=== PATIENT | male | born 1970 | race Caucasian/White ===

== ENCOUNTER 2017-07-21 20:21 | Observation (INO) | payer OTHER ==
[~2017-07-21] VITALS: Ht 167.6 cm; Wt 71.1 kg
[2017-07-21 20:26] VITALS: BP 159/89; PULSE 105; RESP 18; TEMP 98.5; O2SAT 91
[2017-07-21] MEDS ORDERED: chlordiazePOXIDE 25 MG CAP PO ONE (20:45)
[2017-07-21] MEDS ORDERED: SODIUM CHLORIDE 0.9% FLUSH 10 ML FLUSH IV FLUSH PRN ×2 (20:45→23:00)
--- NOTE | 2017-07-21 20:55 | PD ---
HPI Chief Complaint: Seizure Time Seen by Provider: 20:40 Travel History International Travel<30 days: No Contact w/Intl Traveler<30days: No Traveled to known affect area: No History of Present Illness HPI The patient is a 46-year-old white male alcoholic who normally drinks about 18 beers daily who had some beer this morning but none the rest of the day. He apparently had a seizure somewhere around 7:30 to 8 PM tonight. All he remembers is that he woke up in the ambulance. He denies any head trauma. He denies any tongue biting. He states he has never had a seizure before except when he was a 16-year-old child. He states he had a seizure then because he didn't have enough deep. His friends apparently stated he was starting to have tremors. His friends tried to get him to sip some beer but he started seizing at that point. He states that under no circumstance will he be admitted to the hospital. The patient is a [facility] patient of Dr. Dominguez. He denies any hallucinosis. PFSH Past Medical History Blood Disorders: No Bipolar Disorder: Yes Anxiety: Yes Cancer: No Cardiovascular Problems: No Chemotherapy: No Diminished Hearing: No Endocrine: No Genitourinary: No Immune Disorder: No Inguinal Hernia: Yes Implanted Vascular Access Dvce: No Musculoskeletal: No Neurologic: No Psychiatric: Yes Reproductive: No Respiratory: No Radiation Therapy: No Past Surgical History Ear Surgery: Yes ("TUBES IN MY EARS WHEN I WAS LITTLE CHILD") Oral Surgery: Yes (LEFT JAW SURGERY ) Pacemaker: No Other Surgery: Yes Social History Alcohol Use: Yes (24 PACK DAILY) Tobacco Use: No Substance Use: Yes (ALCOHOL ) Allergies-Medications (Allergen,Severity, Reaction): Coded Allergies: No Known Allergies (Verified Allergy, Unknown, 07/21/17) Reported Meds & Prescriptions Reported Meds & Active Scripts Active No Active Prescriptions or Reported Medications Review of Systems Except as stated in HPI: all other systems reviewed are Neg Physical Exam Narrative GENERAL: The patient is alert, oriented 3 in no apparent distress. His vital signs show blood pressure 159/89 with heart rate of 105 and oximetry 91% but otherwise normal. SKIN: Focused skin assessment warm/dry. HEAD: Atraumatic. Normocephalic. EYES: Pupils equal and round. No scleral icterus. No injection or drainage. ENT: No nasal bleeding or discharge. Mucous membranes pink and moist. There is a questionable bite addison on the left edge of the tongue. Mid point but the patient states he does not feel any sore there. NECK: Trachea midline. No JVD. No C-spine tenderness or deformity is present. CARDIOVASCULAR: Regular rate and rhythm. No murmur appreciated. RESPIRATORY: No accessory muscle use. Clear to auscultation. Breath sounds equal bilaterally. GASTROINTESTINAL: Abdomen soft, non-tender, nondistended. Hepatic and splenic margins not palpable. MUSCULOSKELETAL: No obvious deformities. No clubbing. No cyanosis. No edema. NEUROLOGICAL: Awake and alert. No obvious cranial nerve deficits. Motor grossly within normal limits. Normal speech. PSYCHIATRIC: Appropriate mood and affect; insight and judgment normal. Data Data Last Documented VS Vital Signs Date Time Temp Pulse Resp B/P (MAP) Pulse Ox O2 Delivery O2 Flow Rate FiO2 07/21/17 22:37 98.4 88 18 152/86 (108) 97 Room Air 07/21/17 20:31 2.00 Orders Orders Electrocardiogram (07/21/17 20:41) Complete Blood Count With Diff (07/21/17 20:41) Comprehensive Metabolic Panel (07/21/17 20:41) Troponin I (07/21/17 20:41) Urinalysis - C+S If Indicated (07/21/17 20:41) Ct Brain W/O Iv Contrast(Rout) (07/21/17 20:41) Blood Glucose (07/21/17 20:41) Ecg Monitoring (07/21/17 20:41) Iv Access Insert/Monitor (07/21/17 20:41) Oximetry (07/21/17 20:41) Sodium Chloride 0.9% Flush (Ns Flush) (07/21/17 20:45) Drug Screen, Random Urine (07/21/17 20:41) Alcohol (Ethanol) (07/21/17 20:41) Chlordiazepoxide (Librium) (07/21/17 20:45) Chlordiazepoxide (Librium) (07/21/17 20:45) Sodium Chlor 0.9% 1000 Ml Inj (Ns 1000 M (07/21/17 21:00) Vital Signs (Adult) KAREN.Q4H (07/21/17 22:52) ^ Seizure Precautions (07/21/17 22:52) Diet Regular Basic (07/22/17 Breakfast) Place In Observation (07/21/17 ) Vital Signs (Adult) Q4H (07/21/17 22:52) Alcohol Withdrawal Asmt-Ciwa Q4HX18 (07/21/17 22:52) ^ Seizure Precautions (07/21/17 22:52) Sodium Chloride 0.9% Flush (Ns Flush) (07/21/17 23:00) Sodium Chloride 0.9% Flush (Ns Flush) (07/22/17 09:00) Folic Acid (Folate) (07/22/17 09:00) Multivitamins-Minerals Therap (Theragran (07/22/17 09:00) Thiamine Inj (Thiamine Inj) (07/21/17 23:00) Ondansetron Inj (Zofran Inj) (07/21/17 23:00) Consult Cm-Etoh Abuse Dc Plan (07/21/17 ) Flumazenil Inj (Romazicon Inj) (07/21/17 23:00) Lorazepam (Ativan) (07/21/17 23:00) Lorazepam Inj (Ativan Inj) (07/21/17 23:00) Lorazepam (Ativan) (07/21/17 23:00) Lorazepam Inj (Ativan Inj) (07/21/17 23:00) Lorazepam Inj (Ativan Inj) (07/21/17 23:00) Lorazepam Inj (Ativan Inj) (07/21/17 23:00) Scd Bilateral/Knee High KAREN.BID (07/21/17 22:52) Labs Laboratory Tests Test 07/21/17 21:00 07/21/17 21:08 White Blood Count 3.6 TH/MM3 Red Blood Count 4.47 MIL/MM3 Hemoglobin 12.9 GM/DL Hematocrit 38.9 % Mean Corpuscular Volume 86.9 FL Mean Corpuscular Hemoglobin 29.0 PG Mean Corpuscular Hemoglobin Concent 33.3 % Red Cell Distribution Width 13.6 % Platelet Count 139 TH/MM3 Mean Platelet Volume 7.5 FL Neutrophils (%) (Auto) 74.7 % Lymphocytes (%) (Auto) 9.9 % Monocytes (%) (Auto) 14.1 % Eosinophils (%) (Auto) 0.4 % Basophils (%) (Auto) 0.9 % Neutrophils # (Auto) 2.7 TH/MM3 Lymphocytes # (Auto) 0.4 TH/MM3 Monocytes # (Auto) 0.5 TH/MM3 Eosinophils # (Auto) 0.0 TH/MM3 Basophils # (Auto) 0.0 TH/MM3 CBC Comment DIFF FINAL Differential Comment Blood Urea Nitrogen 10 MG/DL Creatinine 0.90 MG/DL Random Glucose 83 MG/DL Total Protein 8.0 GM/DL Albumin 4.2 GM/DL Calcium Level 8.7 MG/DL Alkaline Phosphatase 59 U/L Aspartate Amino Transf (AST/SGOT) 131 U/L Alanine Aminotransferase (ALT/SGPT) 122 U/L Total Bilirubin 0.7 MG/DL Sodium Level 132 MEQ/L Potassium Level 3.8 MEQ/L Chloride Level 97 MEQ/L Carbon Dioxide Level 20.3 MEQ/L Anion Gap 15 MEQ/L Estimat Glomerular Filtration Rate 92 ML/MIN Troponin I LESS THAN 0.02 NG/ML Ethyl Alcohol Level 9 MG/DL Urine Collection Type Urine Color YELLOW Urine Turbidity CLEAR Urine pH 5.5 Urine Specific [place] 1.021 Urine Protein 30 mg/dL Urine Glucose (UA) NEG mg/dL Urine Ketones TRACE mg/dL Urine Occult Blood MOD Urine Nitrite NEG Urine Bilirubin NEG Urine Leukocyte Esterase NEG Urine WBC 0-2 /hpf Urine Mucus FEW /lpf Microscopic Urinalysis Comment CULT NOT INDICATED Urine Opiates Screen NEG Urine Barbiturates Screen NEG Urine Amphetamines Screen NEG Urine Benzodiazepines Screen NEG Urine Cocaine Screen NEG Urine Cannabinoids Screen NEG MDM Medical Decision Making Medical Screen Exam Complete: Yes Emergency Medical Condition: Yes Medical Record Reviewed: Yes Interpretation(s) The CT brain shows no acute intracranial findings. The CBC shows a white count of 3600 with a hemoglobin of 12.9 and hematocrit of 38.9. The toxicology screen is negative for all substances tested in the urine and alcohol level is 9. The complete metabolic profile shows a sodium of 132, AST of 131, ALT 122 but is otherwise unremarkable. The troponin I is normal. The EKG shows sinus rhythm with a rate of [address] elevation or depression. Differential Diagnosis Alcohol withdrawal seizure, intracranial bleed-unlikely, electrolyte disorder, seizure disorder with seizures Narrative Course The patient appears to have alcohol withdrawal seizure. He will be [address] José whitten, I discussed the patient with him. Diagnosis Primary Impression: Alcohol withdrawal seizure Additional Impression: Alcohol abuse Admitting Information Admitting Physician Requests: Observation Scripts No Active Prescriptions or Reported Meds Donal Waterman MD Jul 21, 2017 20:55
[2017-07-21] MEDS: SODIUM CHLOR 0.9% 1000 ML INJ 1,000 ML IV SCH (21:07)
[2017-07-21 21:12] LABS: AUTOMATED NEUTROPHIL # 2.7 TH/MM3 (1.8-7.7); BASOPHIL % 0.9 % (0.0-2.0); EOSINOPHIL % 0.4 % (0.0-4.0); HEMATOCRIT 38.9 % (39.0-51.0); HEMOGLOBIN 12.9 GM/DL (13.0-17.0); LYMPH % 9.9 % (9.0-44.0); LYMPHOCYTE # 0.4 TH/MM3 (1.0-4.8); MEAN CELL VOLUME 86.9 FL (80.0-100.0); MEAN CORPUSCULAR HGB CONC 33.3 % (32.0-36.0); MEAN PLATELET VOLUME 7.5 FL (7.0-11.0); MONO % 14.1 % (0.0-8.0); MONOCYTE # 0.5 TH/MM3 (0-0.9); NEUT % 74.7 % (16.0-70.0); PLATELET COUNT 139 TH/MM3 (150-450); RED BLOOD COUNT 4.47 MIL/MM3 (4.50-5.90); RED CELL DISTRIBUTION WIDTH 13.6 % (11.6-17.2); WHITE BLOOD COUNT 3.6 TH/MM3 (4.0-11.0)
[2017-07-21 21:15] VITALS: O2SAT 97
[2017-07-21 21:20] LABS: CHLORIDE 97 MEQ/L (98-107); SODIUM (NA) 132 MEQ/L (136-145)
[2017-07-21 21:23] LABS: ALBUMIN 4.2 GM/DL (3.4-5.0); BICARBONATE 20.3 MEQ/L (21.0-32.0); BLOOD UREA NITROGEN 10 MG/DL (7-18); CALCIUM 8.7 MG/DL (8.5-10.1); GLUCOSE,RANDOM 83 MG/DL (74-106)
[2017-07-21 21:26] LABS: ALT (GPT) 122 U/L (12-78); AST (GOT) 131 U/L (15-37); GLOMERULAR FILTRATION RATE 92 ML/MIN (>89)
[2017-07-21 21:28] LABS: TOTAL BILIRUBIN ADULT 0.7 MG/DL (0.2-1.0)
[2017-07-21 21:29] LABS: ALKALINE PHOSPHATASE 59 U/L (45-117)
[2017-07-21 21:30] VITALS: BP 152/88; PULSE 98; RESP 18; O2SAT 98
[2017-07-21 21:31] LABS: TROPONIN I LESS THAN 0.02 NG/ML (0.02-0.05)
[2017-07-21 21:32] LABS: BILIRUBIN, URINE NEG (NEG); BLOOD, URINE MOD (NEG); GLUCOSE,URINE NEG (NEG); KETONE, URINE TRACE mg/dL (NEG); NITRITE,URINE NEG (NEG); PH, URINE 5.5 (5.0-8.5); URINE LEUKOCYTE ESTERASE NEG (NEG)
[2017-07-21 21:35] LABS: MUCUS URINE FEW /lpf (OCC); URINE COLOR YELLOW (YELLW/STRAW)
[2017-07-21 21:36] LABS: WBC, URINE 0-2 /hpf (0-5)
--- NOTE | 2017-07-21 21:49 | RADRPT ---
EXAM DATE/TIME: 07/21/2017 21:15 [place] COMPARISON: No previous studies available for comparison. INDICATIONS : New seizure activity today RADIATION DOSE: 59.00 CTDIvol (mGy) MEDICAL HISTORY : Seizures. SURGICAL HISTORY : Jaw ENCOUNTER: Initial ACUITY: 1 day PAIN SCALE: 0/10 LOCATION: cranial TECHNIQUE: Multiple contiguous axial images were obtained of the head. Using automated exposure control and adj ustment of the mA and/or kV according to patient size, radiation dose was kept as low as reasonably a chievable to obtain optimal diagnostic quality images. DICOM format image data is available electro nically for review and comparison. FINDINGS: CEREBRUM: The ventricles are normal for age. No evidence of midline shift, mass lesion, hemorrhage or acute in farction. No extra-axial fluid collections are seen. POSTERIOR FOSSA: The cerebellum and brainstem are intact. The 4th ventricle is midline. The cerebellopontine angle i s unremarkable. EXTRACRANIAL: Polyps or retention cysts in the left maxillary sinus. SKULL: The calvaria is intact. No evidence of skull fracture. CONCLUSION: No acute intracranial findings. Kadeem Grace MD on July 21, 2017 at 21:45 Board Certified Radiologist. This report was verified electronically.
[2017-07-21 22:37] VITALS: BP 152/86; PULSE 88; RESP 18; TEMP 98.4; O2SAT 97
[2017-07-21] MEDS ORDERED: LORazepam 2 MG TAB PO PRN (23:00)
[2017-07-21] MEDS ORDERED: LORazepam 2 MG/ML VIAL IV PUSH PRN ×4 (23:00)
[2017-07-21] MEDS ORDERED: ONDANSETRON HCL 4 MG/2 ML VIAL IV PUSH PRN (23:00)
[2017-07-21] MEDS ORDERED: LORazepam 1 MG TAB PO PRN (23:00)
[2017-07-21] MEDS ORDERED: FLUMAZENIL 0.5 MG/5 ML VIAL IV PUSH PRN (23:00)
[2017-07-21] MEDS ORDERED: THIAMINE INJ 100 MG in SODIUM CHLORIDE 0.9% INJ 100 ML IV ONE (23:15)
[2017-07-21] MEDS: THIAMINE INJ 100 MG in SODIUM CHLORIDE 0.9% INJ 100 ML IV SCH (23:39)
[2017-07-22] VITALS: BP 161/94; PULSE 82; RESP 20; TEMP 98.2; O2SAT 97
[2017-07-22 00:37] VITALS: BP 150/75; TEMP 98.4
[2017-07-22] MEDS: SODIUM CHLOR 0.45% 1000 ML INJ 1,000 ML IV SCH ×2 (00:45→12:30)
[2017-07-22 08:00] VITALS: BP_SYST 150; BP_SYST 158; BP_DIAS 100; BP_DIAS 111; PULSE 83; RESP 16; TEMP 97; O2SAT 97
[2017-07-22] MEDS: chlordiazePOXIDE 25 MG CAP PO SCH ×3 (08:17→17:44)
[2017-07-22] MEDS: FOLIC ACID 1 MG TAB PO SCH (08:18)
[2017-07-22] MEDS: SODIUM CHLORIDE 0.9% FLUSH 10 ML FLUSH IV FLUSH SCH ×2 (08:18→20:07)
[2017-07-22] MEDS: MULTIVITAMINS/MINERALS THERAPEUTIC TAB PO SCH (08:18)
--- NOTE | 2017-07-22 08:31 | MH ---
cc: RAMONE THAO M.D. DATE OF ADMISSION: 07/21/2017 ADMITTING DIAGNOSIS: 1. Alcohol withdrawal seizure. 2. Chronic alcohol abuse / alcoholism. 3. Elevated liver function tests secondary to alcohol. HISTORY OF PRESENT ILLNESS: This 46-year-old white male who drinks up to 24 beers a day who apparently after work yesterday he was with some friends. He had a seizure around 7:30 to 8:00 p.m. The patient had no recall of this. All he remembers is he woke up in an ambulance. Apparently his friends tried to get him to sip some beer but he started seizing at that point. He mentions that he did have an alcohol withdrawal seizure about three months ago and was admitted to a hospital up in [place]. He was discharged on Ativan for five days. He has had no other seizures that he can recall. He did go to [facility] a few years ago and detoxed with Librium and states that he would really like to get back on Librium if he is going to detox himself but he states he cannot go to a detox center because he cannot miss work. He apparently works for a [employer] and lives on the site of where his business is and he does not drive a motor vehicle. He has no current complaints other than he states he is still pretty shaky today. His last drink of alcohol was yesterday afternoon. He does not feel like he is ready to go home today. PAST MEDICAL HISTORY: He denies any heart disease, hypertension, diabetes. He has never been told he had any liver disease. No kidney disease. No peptic ulcer disease or stroke. No lung problems. PAST SURGICAL HISTORY: 1. He has had tympanostomy tubes when he was young. 2. He had surgery for a fracture of his mandible. ALLERGIES: NONE. MEDICATIONS: He was not on any medications at home. FAMILY HISTORY: His father is living and he is 74 and has heart disease. His mother at 48 of alcoholic cirrhosis. He had a brother in his 40s from cancer. A sister at 54 of an overdose on Fentanyl. SOCIAL HISTORY: He is . He quit smoking seven years ago. He smoked a pack a day for 18 years. He works for [employer]. He drinks, he states, up to a case of beer a day and has for quite some time. REVIEW OF SYSTEMS: GENERAL: He has had no fever, chills, sweats. HEAD, EYES, EARS, NOSE, THROAT: Without complaints. CARDIOVASCULAR: No chest pain, orthopnea, or paroxysmal nocturnal dyspnea. PULMONARY: No cough, hemoptysis, wheezing. GASTROINTESTINAL: No abdominal pain, nausea or vomiting, diarrhea. GENITOURINARY: Without complaints. MUSCULOSKELETAL: Without complaints. PSYCHIATRIC: He is just a little shaky. He states he may have been told at one time he was bipolar but he has never been on any medication for that. NEUROLOGIC: No confusion. No weakness or sensory loss. PHYSICAL EXAMINATION: VITAL SIGNS: His blood pressure is 150/75, 02 saturation 98%, respirations 18, pulse 88, temperature 98.4. GENERAL: A pleasant white male in no significant distress. He just minimally tremulous. He is alert and oriented. HEAD, EYES, EARS, NOSE, THROAT: Pupils are equal. The sclerae are nonicteric. Nose without lesions. Mouth without inflammation or lesions. NECK: Without jugular venous distention. No bruits. HEART: Regular rate and rhythm. No murmurs. LUNGS: Clear. ABDOMEN: Abdomen soft and nontender. No masses. EXTREMITIES: No edema. Pulses 2+. SKIN: Negative. NEUROLOGIC: Oriented x3. Motor and sensory intact. Cranial nerves intact. LABORATORY: His white count last night was 3.6, hemoglobin 12.9, platelet count 139,000 probably secondary to his liver disease. Sodium 132, potassium 3.8, chloride 97, carbon dioxide 20.3, BUN and creatinine normal, AST was high at 131, ALT 122. Troponin less than 0.02. Protein 8.0. Albumin 4.2. Urine was negative for opiates, barbiturates, benzodiazepine, cocaine, cannabinoids. His alcohol level last night was 9. Urine was negative. IMAGING STUDIES: CT brain scan showed no acute findings. ASSESSMENT: 1. Alcohol withdrawal seizure. 2. Chronic alcohol abuse / alcoholism. 3. Elevated liver function tests secondary to alcohol. 4. Minimal thrombocytopenia, likely secondary to alcohol. PLAN: 1. We will go ahead and just put him on some scheduled Librium 25 milligrams three times a day. 2. He has Ativan ordered should he get worsening withdrawal symptoms or seizure. 3. He has thiamine ordered as well on a daily basis. 4. We will monitor him here for at least one more day and then possibly send him home on Librium to follow up with Dr. Suh, his primary care physician. MD BRITTNEY Chance/ROLO /8:01 AM /8:10 AM
[2017-07-22 09:17] LABS: BICARBONATE 25.1 MEQ/L (21.0-32.0); CALCIUM 8.1 MG/DL (8.5-10.1)
[2017-07-22 09:21] LABS: CREATININE 0.77 MG/DL (0.60-1.30)
[2017-07-22 12:00] VITALS: BP_SYST 140; BP_SYST 158; BP_DIAS 107; BP_DIAS 92; PULSE 75; RESP 18; TEMP 97.3; O2SAT 95
--- NOTE | 2017-07-22 15:06 | EKG ---
Date Performed: 07/21/2017 Time Performed: 20:49:01 PTAGE: 46 years EKG: Sinus rhythm NORMAL ECG PREVIOUS TRACING : 10/13/2012 10.16 Since previous tracing, no significant change noted DOCTOR: Andrew Randolph Interpretating Date/Time 07/22/2017 15:05:35
[2017-07-22 16:00] VITALS: BP 145/89; PULSE 80; RESP 18; TEMP 97.7; O2SAT 96
[2017-07-22 20:00] VITALS: BP 149/98; PULSE 83; RESP 18; TEMP 97.8; O2SAT 98
[2017-07-22] MEDS: THIAMINE INJ 100 MG in SODIUM CHLORIDE 0.9% INJ 100 ML IV SCH (22:36)
[2017-07-23] VITALS: BP_SYST 152; BP_SYST 155; BP_DIAS 102; BP_DIAS 117; PULSE 80; RESP 18; TEMP 97.7; O2SAT 95
[2017-07-23] MEDS: SODIUM CHLOR 0.45% 1000 ML INJ 1,000 ML IV SCH (00:34)
[2017-07-23 04:00] VITALS: BP 128/92; PULSE 69; RESP 20; TEMP 97.3; O2SAT 97
--- NOTE | 2017-07-23 07:03 | HHI.PR ---
Subjective Remarks No shortness of breath. No pain. No seizures. He is less shaky. He feels like he can go home. Objective Vitals Vital Signs Date Time Temp Pulse Resp B/P (MAP) Pulse Ox O2 Delivery O2 Flow Rate FiO2 07/23/17 04:00 97.3 69 20 128/92 (104) 97 07/23/17 00:00 97.7 80 18 155/117 (130) 95 152/102 (119) 07/22/17 20:00 97.8 83 18 149/98 (115) 98 07/22/17 16:00 97.7 80 18 145/89 (107) 96 07/22/17 12:00 97.3 75 18 158/107 (124) 95 140/92 (108) 07/22/17 08:00 97.0 83 16 150/111 (124) 97 158/100 (119) Result Diagram: 07/21/17 2100 07/22/17 0800 Other Results Laboratory Tests Test 07/21/17 21:00 07/21/17 21:08 07/22/17 08:00 White Blood Count 3.6 TH/MM3 Red Blood Count 4.47 MIL/MM3 Hemoglobin 12.9 GM/DL Hematocrit 38.9 % Mean Corpuscular Volume 86.9 FL Mean Corpuscular Hemoglobin 29.0 PG Mean Corpuscular Hemoglobin Concent 33.3 % Red Cell Distribution Width 13.6 % Platelet Count 139 TH/MM3 Mean Platelet Volume 7.5 FL Neutrophils (%) (Auto) 74.7 % Lymphocytes (%) (Auto) 9.9 % Monocytes (%) (Auto) 14.1 % Eosinophils (%) (Auto) 0.4 % Basophils (%) (Auto) 0.9 % Neutrophils # (Auto) 2.7 TH/MM3 Lymphocytes # (Auto) 0.4 TH/MM3 Monocytes # (Auto) 0.5 TH/MM3 Eosinophils # (Auto) 0.0 TH/MM3 Basophils # (Auto) 0.0 TH/MM3 CBC Comment DIFF FINAL Differential Comment Blood Urea Nitrogen 10 MG/DL 8 MG/DL Creatinine 0.90 MG/DL 0.77 MG/DL Random Glucose 83 MG/DL 73 MG/DL Total Protein 8.0 GM/DL Albumin 4.2 GM/DL Calcium Level 8.7 MG/DL 8.1 MG/DL Magnesium Level 2.0 MG/DL Alkaline Phosphatase 59 U/L Aspartate Amino Transf (AST/SGOT) 131 U/L Alanine Aminotransferase (ALT/SGPT) 122 U/L Total Bilirubin 0.7 MG/DL Sodium Level 132 MEQ/L 135 MEQ/L Potassium Level 3.8 MEQ/L 3.5 MEQ/L Chloride Level 97 MEQ/L 101 MEQ/L Carbon Dioxide Level 20.3 MEQ/L 25.1 MEQ/L Anion Gap 15 MEQ/L 9 MEQ/L Estimat Glomerular Filtration Rate 92 ML/MIN 110 ML/MIN Troponin I LESS THAN 0.02 NG/ML Ethyl Alcohol Level 9 MG/DL Urine Collection Type Urine Color YELLOW Urine Turbidity CLEAR Urine pH 5.5 Urine Specific [place] 1.021 Urine Protein 30 mg/dL Urine Glucose (UA) NEG mg/dL Urine Ketones TRACE mg/dL Urine Occult Blood MOD Urine Nitrite NEG Urine Bilirubin NEG Urine Leukocyte Esterase NEG Urine WBC 0-2 /hpf Urine Mucus FEW /lpf Microscopic Urinalysis Comment CULT NOT INDICATED Urine Opiates Screen NEG Urine Barbiturates Screen NEG Urine Amphetamines Screen NEG Urine Benzodiazepines Screen NEG Urine Cocaine Screen NEG Urine Cannabinoids Screen NEG Imaging Last Impressions Head CT 07/21/172040 Signed Impressions: Service Date/Time: Friday, July 21, 2017 21:15 - CONCLUSION: No acute intracranial findings. Kadeem Grace MD Objective Remarks Exam: Pleasant white male in no distress. HEENT: Pupils equal, mouth negative, no scleral icterus Neck: No JVD Heart: RRR with no murmurs Lungs: Clear Abdomen: Soft, nontender Ext: No edema Neuro: Alert, oriented, no motor or sensory deficits A/P Assessment and Plan Assessment: --Alcohol withdrawal seizure --Alcoholism/chronic alcohol abuse --Abnormal liver function tests secondary to alcohol use --Minimal thrombocytopenia Plan: Discharge today. I will send him home on Librium 25mg three times a day and have him followup with Dr Suh in 3-5 days. I ordered Thiamine 100mg po daily also. José Boo MD Jul 23, 2017 07:03
[2017-07-23] MEDS ORDERED: VITA100T54 PO (07:15)
[2017-07-23] MEDS ORDERED: THERM PO (07:15)
[2017-07-23] MEDS ORDERED: FOLI1TAB6 PO (07:15)
[2017-07-23] MEDS ORDERED: CHLO25CA9 PO (07:15)
[2017-07-23 08:00] VITALS: BP 132/92; PULSE 71; RESP 18; TEMP 97.1; O2SAT 98
[2017-07-23] MEDS: SODIUM CHLORIDE 0.9% FLUSH 10 ML FLUSH IV FLUSH SCH (08:29)
[2017-07-23] MEDS: FOLIC ACID 1 MG TAB PO SCH (08:29)
[2017-07-23] MEDS: MULTIVITAMINS/MINERALS THERAPEUTIC TAB PO SCH (08:29)
[2017-07-23] MEDS: chlordiazePOXIDE 25 MG CAP PO SCH (08:29)
== END 2017-07-23 09:00 | disposition home or self-care (01) ==
LOC: PHED 20:21 → PHEDA 23:10 → PH3B 07-22 00:26
PROVIDERS: ADMIT Family Medicine; ATTEND Family Medicine
DX: F10.239 Alcohol dependence with withdrawal, unspecified (principal); R56.9 Unspecified convulsions; R94.5 Abnormal results of liver function studies; Z87.891 Personal history of nicotine dependence
CPT/HCPCS: 70450; 80048; 80053; 80307; 81001; 83735; 84484; 85025; 93005; 96361; 96365; 99285; G0378; J3411; J7030